=== PATIENT | female | born 1935 | race Two or more races ===

== ENCOUNTER → 2017-06-02 | Emergency (ER) | payer OTHER ==
[~2017-06-02] VITALS: Ht 149.9 cm; Wt 54.4 kg
[~2017-06-02] MED LIST: ANTIVERT25 M1 PO; FOLIC ACID1 MG PO; LEVAQUIN750 MG PO; LOTREL 10-20 MG1 CAP PO; LOTREL 5-40 MG1 EACH; MEDROLPACK PO; METHOTREXATE2.5 MG PO; PREDNISONE10 MG PO; TESSALON PERLE100 M1 PO; VERTIN-3225 MG; XOPENEX CO1.25 MG/0. IH; ZANTAC300 MG PO
== END | disposition home or self-care (01) ==
LOC: ER 08:31
DX: J18.9 Pneumonia, unspecified organism (principal); R06.02 Shortness of breath; J11.1 Influenza due to unidentified influenza virus with other respiratory manifestations